=== PATIENT | male | born 1990 | race Caucasian/White ===

== ENCOUNTER 2020-09-18 08:44 | Outpatient (NON) | payer BC, SELFPAY ==
[2020-09-19 13:44] LABS: SARS-CoV-2 RNA PCR Positive
== END 2020-09-18 08:45 ==
LOC: ANHCOVIDDT 08:45
PROVIDERS: PCP Family Medicine; Visit Provider Physician Assistant Medical
DX: U07.1 COVID-19 (principal)
CPT/HCPCS: 87635; C9803; U0003